=== PATIENT | female | born 2000 | race African-American/Black ===

== ENCOUNTER 2021-10-24 23:13 | Emergency (ER) | payer SELFPAY ==
[2021-10-24 23:20] VITALS: TEMP 98.1; BMI 43.0
[2021-10-25] MEDS ORDERED: LACTATED RINGERS SOLUTION 1000 ML INFUS.BAG IV ONE (01:25)
[2021-10-25] MEDS ORDERED: ACETAMINOPHEN 1000 MG/100 ML VIAL IVPB ONE (01:25)
[2021-10-25] MEDS ORDERED: ACETAMINOPHEN INJECTION 100 ML IVPB ONE (02:25)
[2021-10-25 03:27] LABS: BASO % 0.6 % (0-2.0); EOS % 0.9 % (0-4.5); HEMATOCRIT 36.7 % (32.4-45.2); HEMOGLOBIN 12.1 GM/dL (10.7-15.3); LYMPH % 43.9 % (8-40); MCH 28.8 pg (25.7-33.7); MEAN CELL VOLUME 87.2 fl (80-96); MEAN PLT VOLUME 7.5 fl (7.5-11.1); MONO % 8.5 % (3.8-10.2); NEUT % 46.1 % (42.8-82.8); PLATELET COUNT 327 10^3/uL (134-434); RBC 4.21 M/mm3 (3.60-5.2); RDW 14.6 % (11.6-15.6); WHITE BLOOD COUNT 8.2 K/mm3 (4.0-10.0)
[2021-10-25 03:41] LABS: CHLORIDE 110 mmol/L (98-107); SODIUM 141 mmol/L (136-145)
[2021-10-25 03:44] LABS: ANION GAP 9 MMOL/L (8-16); BLOOD UREA NITROGEN 14.3 mg/dL (7-18); CALCIUM 8.6 mg/dL (8.5-10.1); CO2 23 mmol/L (21-32); GLUCOSE,RANDOM 112 mg/dL (74-106); LIPASE 161 U/L (73-393)
[2021-10-25 03:47] LABS: CREATININE 0.6 mg/dL (0.55-1.3); SGOT/AST 21 U/L (15-37); SGPT/ALT 17 U/L (13-61)
[2021-10-25 03:49] LABS: BILIRUBIN,TOTAL 0.4 mg/dL (0.2-1); TOT PROT 7.7 g/dl (6.4-8.2)
[2021-10-25 03:50] LABS: ALK PHOS 80 U/L (45-117)
[2021-10-25 05:39] VITALS: BP 142/98; PULSE 66
[2021-10-25 06:11] LABS: EPI CELLS 8 /uL (0-25.1); HYALINE CASTS 5 /uL (0-3.1); PH,URINE 5.5 (5.0-8.0); URINE APPEARANCE CLEAR; URINE BACTERIA 1499 /uL (0-1359); URINE BILIRUBIN NEGATIVE (NEGATIVE); URINE COLOR YELLOW; URINE GLUCOSE (UA) NEGATIVE (NEGATIVE); URINE KETONE NEGATIVE (NEGATIVE); URINE LEUK ESTERASE TRACE (NEGATIVE); URINE NITRITE NEGATIVE (NEGATIVE); URINE PROTEIN NEGATIVE (NEGATIVE); URINE RBC 527 /uL (0-23.9); URINE UROBILINOGEN 0.2 mg/dL (0.2-1.0); URINE WBC 176 /uL (0-25.8)
== END 2021-10-25 06:44 | disposition home or self-care (01) ==
LOC: JER 23:13
PROC: 3E033NZ Introduction of Analgesics, Hypnotics, Sedatives into Peripheral Vein, Percutaneous Approach (ICD-10-PCS; principal; 2021-10-25)
DX: N39.0 Urinary tract infection, site not specified (principal)
CPT/HCPCS: 36415; 80053; 81003; 82550; 82553; 83690; 84484; 84703; 85025; 87086; 93005; 93010; 99284-25; J0131

== ENCOUNTER 2022-05-15 09:59 | Emergency (ER) | payer OTHER ==
[2022-05-15 10:11] VITALS: BP 136/83; PULSE 81; TEMP 98.3; BMI 40.6
[2022-05-15] MEDS ORDERED: DEXAMETHASONE SOD PHOSPHATE 10 MG/1 ML VIAL IM ONE (11:05)
[2022-05-15] MEDS ORDERED: DEXAMETHASONE SOD PHOSPHATE 10 MG/1 ML VIAL ONE (11:56)
== END 2022-05-15 13:03 | disposition home or self-care (01) ==
LOC: JER 09:59
PROC: 3E023GC Introduction of Other Therapeutic Substance into Muscle, Percutaneous Approach (ICD-10-PCS; principal; 2022-05-15)
DX: T78.40XA Allergy, unspecified, initial encounter (principal)
CPT/HCPCS: 99284-25; J1100

== ENCOUNTER 2024-04-03 18:29 | Emergency (ER) | payer OTHER ==
[2024-04-03 18:57] VITALS: BMI 48.4
[2024-04-03 20:24] LABS: URINE APPEARANCE CLOUDY; URINE BILIRUBIN NEGATIVE (NEGATIVE); URINE COLOR YELLOW; URINE GLUCOSE (UA) NEGATIVE (NEGATIVE); URINE KETONE NEGATIVE (NEGATIVE); URINE LEUK ESTERASE NEGATIVE (NEGATIVE); URINE NITRITE NEGATIVE (NEGATIVE); URINE PROTEIN TRACE (NEGATIVE)
[2024-04-03 20:34] VITALS: BP 113/76; PULSE 102; RESP 18; TEMP 97.7
== END 2024-04-03 22:28 | disposition home or self-care (01) ==
LOC: JERFT 18:29 → JER 18:29
DX: O26.892 Other specified pregnancy related conditions, second trimester (principal); R10.30 Lower abdominal pain, unspecified; M54.50 Low back pain, unspecified; Z3A.24 24 weeks gestation of pregnancy
CPT/HCPCS: 81003; 87086; 99283-25